=== PATIENT | female | born 1990 | race African-American/Black ===

== ENCOUNTER 2017-06-16 07:09 | Emergency (ER) | payer MEDICAID ==
--- NOTE | 2017-06-16 08:39 | RADIOLOGY REPORT (SQ) ---
EXAM DESCRIPTION: KNEE LEFT 4 VIEW COMPLETED DATE/TIME: 06/16/2017 8:10 am REASON FOR STUDY: hurt knee COMPARISON: None. NUMBER OF VIEWS: Four views left knee. LIMITATIONS: None. FINDINGS: Normal bone density. Small effusion suspected. No fracture or bone lesion. Maintained j oint spaces. Fairly extensive dystrophic calcification regionally throughout the soft tissues. Potentially relate d to previous trauma. OTHER: No other significant finding. IMPRESSION: Suspect small joint effusion. No fracture or bone lesion, however. TECHNICAL DOCUMENTATION: JOB ID: [id number]
[2017-06-16] MEDS ORDERED: ACETAMINOPHEN 325 MG TABLET PO ONE (08:40)
--- NOTE | 2017-06-16 08:43 | ER Document Report ---
HPI - HPI Patient complains to provider of: left knee pain Onset: Other - sunday Onset/Duration: Persistent Quality of pain: Achy Pain Level: 5 Context: Patient presents emergency department with complaints of left knee pain since last Sunday. Patient reports she was come down a step on the left steps she twisted her knee. Reports that her knee was feeling better but this morning she woke up and it was very painful. Reports no pain at rest, pain with ambulating/movement. Denies past medical history of injury to the knee. Patient is visiting from [place]. Associated Symptoms: None Exacerbated by: Movement, Walking Relieved by: Denies Similar symptoms previously: No Recently seen / treated by doctor: No - DERM Skin Color: Normal Past Medical History - General Information source: Patient Last Menstrual Period: irregular - Social History Smoking Status: Never Smoker Chew tobacco use (# tins/day): No Frequency of alcohol use: None Drug Abuse: None Occupation: not employed Lives with: Family Family History: Reviewed & Not Pertinent Patient has suicidal ideation: No Patient has homicidal ideation: No - Past Medical History Cardiac Medical History: Reports: Hx Hypertension Renal/ Medical History: Denies: Hx Peritoneal Dialysis Surgical Hx: Negative - Immunizations Hx Diphtheria, Pertussis, Tetanus Vaccination: Yes Vertical Provider Document - CONSTITUTIONAL Agree With Documented VS: Yes Exam Limitations: No Limitations General Appearance: WD/WN, Mild Distress - wince when walking - INFECTION CONTROL TRAVEL OUTSIDE OF THE [place] IN LAST 30 DAYS: No - HEENT HEENT: Atraumatic, Normocephalic - NECK Neck: Supple - RESPIRATORY Respiratory: No Respiratory Distress O2 Sat by Pulse Oximetry: 98 - CARDIOVASCULAR Cardiovascular: Regular Rate - MUSCULOSKELETAL/EXTREMETIES Musculoskeletal/Extremeties: MAEW, FROM, Tender - left knee ttp, no swelling , no obvious deformity - NEURO Level of Consciousness: Awake, Alert, Appropriate Motor/Sensory: No Motor Deficit - DERM Integumentary: Warm, Dry Adult Front & Back Diagram: 1 - tender with movement, ambulating Course - Re-evaluation Re-evalutation: 06/16/17 pt offered toradol, declines, instructed on effusion, possible tear, importance of fu when she returns to [place]. declines knee immobilizer, accepted kashmir wrap and crutches. - Vital Signs Vital signs: Temp Pulse Resp BP Pulse Ox 98.3 F 94 16 98 06/16/17 07:16 06/16/17 07:16 06/16/17 07:16 06/16/17 07:16 - Diagnostic Test Radiology reviewed: Image reviewed, Reports reviewed - EXAM DESCRIPTION: KNEE LEFT 4 VIEW COMPLETED DATE/TIME: 06/16/2017 8:10 am REASON FOR STUDY: hurt knee COMPARISON: None. NUMBER OF VIEWS: Four views left knee. LIMITATIONS : None. FINDINGS: Normal bone density. Small effusion suspected. No fracture or bone lesion. Maintained joint spaces. Fairly extensive dystrophic calcification regionally throughout the soft tissues. Potentially related to previous trauma. OTHER: No other significant finding. IMPRESSION: Suspect small joint effusion. No fracture or bone lesion, however Procedures - Immobilization Left Knee Immobilizer type: [place] wrap Performed by: PCT Post-Proc Neuro Vasc Exam: Unchanged from pre-exam Discharge - Discharge Clinical Impression: Knee effusion, left Left knee pain Qualifiers: Chronicity: acute Qualified Code(s): M25.562 - Pain in left knee Condition: Stable Disposition: HOME, SELF-CARE Instructions: Acetaminophen, [place] Wrap ([facility]), Use of Crutches ([facility]), Ice & Elevation ([facility]), Suspected Internal Knee Injury ([facility]), Knee Effusion ([facility]) Additional Instructions: *You have been evaluated for LEFT KNEE PAIN, EFFUSION *Maintain the kashmir wrap, use the crutches *Rest/Ice/Elevate *Follow up with orthopedics within 5 days for evaluation and possible MRI as indicated-call for an appointment *Take tylenol as indicated *Return to ED for worsening condition, changes, needs
[2017-06-16 09:14] VITALS: BP 142/80
== END 2017-06-16 09:00 | disposition home or self-care (01) ==
LOC: ER 07:09
DX: M25.562 Pain in left knee (principal); M25.462 Effusion, left knee; X50.0XXA Overexertion from strenuous movement or load, initial encounter; Y92.009 Unspecified place in unspecified non-institutional (private) residence as the place of occurrence of the external cause; I10 Essential (primary) hypertension
CPT/HCPCS: 99283

== ENCOUNTER 2017-09-10 15:04 | Inpatient (IN) | payer MEDICAID ==
[2017-09-10] MEDS ORDERED: LABETALOL HCL INJ 20 MG/4 ML DISP.SYRIN IV ONE ×3 (15:32→19:18)
--- NOTE | 2017-09-10 15:33 | ER Document Report ---
ED Medical Screen (RME) - General Chief Complaint: Chest Pressure Stated Complaint: DIZZINESS Time Seen by Provider: 09/10/17 15:32 Notes: Patient has right-sided chest pain. She has also had some cough and cold recently. No cardiac history. No history of DVTs. She does have a history of dermatomyositis. History of high blood pressure and takes labetalol. She has not been taking it last couple of days due to the way that it makes her feel. TRAVEL OUTSIDE OF THE [place] IN LAST 30 DAYS: No - Related Data Allergies/Adverse Reactions: No Known Allergies Allergy (Verified 09/10/17 15:05) Past Medical History - Social History Chew tobacco use (# tins/day): No Frequency of alcohol use: None Drug Abuse: None - Past Medical History Cardiac Medical History: Reports: Hx Hypertension Renal/ Medical History: Denies: Hx Peritoneal Dialysis - Immunizations Hx Diphtheria, Pertussis, Tetanus Vaccination: Yes Physical Exam - Vital signs Vitals: Temp Pulse Resp BP Pulse Ox 98.8 F 85 20 198/113 H 100 09/10/17 15:10 09/10/17 15:10 09/10/17 15:10 09/10/17 15:10 09/10/17 15:10 Course - Vital Signs Vital signs: Temp Pulse Resp BP Pulse Ox 98.8 F 85 20 198/113 H 100 09/10/17 15:10 09/10/17 15:10 09/10/17 15:10 09/10/17 15:10 09/10/17 15:10
[2017-09-10 16:04] LABS: ABSOLUTE EOSINOPHILS # (AUTO) 0.1 10^3/uL (0.0-0.6); ABSOLUTE LYMPHOCYTES (AUTO) 2.2 10^3/uL (0.5-4.7); ABSOLUTE MONOCYTES (AUTO) 0.3 10^3/uL (0.1-1.4); ABSOLUTE NEUT (AUTO) 2.3 10^3/uL (1.7-8.2); BASOPHILS % (AUTO) 0.8 % (0-2); EOSINOPHILS % (AUTO) 1.1 % (0-6); HEMATOCRIT 37.1 % (36.0-47.0); HEMOGLOBIN 13.4 g/dL (12.0-15.5); LYMPHOCYTES % (AUTO) 44.9 % (13-45); MEAN CORPUSCULAR HEMOGLOBIN 30.2 pg (27.0-33.4); MEAN CORPUSCULAR HGB CONC 36.3 g/dL (32.0-36.0); MEAN CORPUSCULAR VOLUME 83 fl (80-97); MONOCYTES % (AUTO) 6.1 % (3-13); PLATELET COUNT 328 10^3/uL (150-450); RED BLOOD COUNT 4.45 10^6/uL (3.72-5.28); RED CELL DISTRIBUTION WIDTH 14.1 % (11.5-14.0); SEGMENTED NEUTROPHILS % (AUTO) 47.1 % (42-78); TOTAL CELLS COUNTED % (AUTO) 100 %
--- NOTE | 2017-09-10 16:24 | RADIOLOGY REPORT (SQ) ---
EXAM DESCRIPTION: CHEST PA/LAT COMPLETED DATE/TIME: 09/10/2017 4:16 pm REASON FOR STUDY: right sided cp COMPARISON: None. EXAM PARAMETERS: NUMBER OF VIEWS: two views TECHNIQUE: Digital Frontal and Lateral radiographic views of the chest acquired. RADIATION DOSE: NA LIMITATIONS: none FINDINGS: LUNGS AND PLEURA: No opacities, masses or pneumothorax. No pleural effusion. MEDIASTINUM AND HILAR STRUCTURES: No masses or contour abnormalities. HEART AND VASCULAR STRUCTURES: Heart normal size. No evidence for failure. BONES: No acute findings. HARDWARE: None in the chest. OTHER: No other significant finding. IMPRESSION: NO SIGNIFICANT RADIOGRAPHIC FINDING IN THE CHEST. TECHNICAL DOCUMENTATION: JOB ID: [id number] [employer]- All Rights Reserved
[2017-09-10 16:26] LABS: ALANINE AMINOTRANSFERASE 48 U/L (9-52); ALBUMIN 5.2 g/dL (3.5-5.0); ALKALINE PHOSPHATASE 52 U/L (38-126); ANION GAP 14 (5-19); ASPARTATE AMINO TRANSFERASE 66 U/L (14-36); BILIRUBIN,DIRECT 0.2 mg/dL (0.0-0.4); BILIRUBIN,TOTAL 0.4 mg/dL (0.2-1.3); BLOOD UREA NITROGEN 6 mg/dL (7-20); CALCIUM 10.4 mg/dL (8.4-10.2); CARBON DIOXIDE 25 mmol/L (22-30); CHLORIDE 105 mmol/L (98-107); GLUCOSE 178 mg/dL (75-110); SODIUM 143.6 mmol/L (137-145); TOTAL PROTEIN 9.1 g/dL (6.3-8.2)
[2017-09-10 16:50] LABS: APPEARANCE,URINE CLEAR; BILIRUBIN,URINE NEGATIVE (NEGATIVE); COLOR,URINE STRAW; GLUCOSE, URINE 50 mg/dL (NEGATIVE); KETONES,URINE NEGATIVE (NEGATIVE); LEUKOCYTE ESTERASE,URINE NEGATIVE (NEGATIVE); NITRITE,URINE NEGATIVE (NEGATIVE); PROTEIN,URINE 30 mg/dL (NEGATIVE); URINE SPECIFIC GRAVITY 1.005; UROBILINOGEN,URINE NEGATIVE mg/dL (<2.0)
--- NOTE | 2017-09-10 19:10 | RADIOLOGY REPORT (SQ) ---
EXAM DESCRIPTION: CTA CHEST COMPLETED DATE/TIME: 09/10/2017 6:48 pm REASON FOR STUDY: CP/dermatomyositis/HTN/CP COMPARISON: None. TECHNIQUE: CT scan of the chest performed using helical scanning technique with dynamic intravenous contrast injection. Images reviewed with lung, soft tissue and bone windows. Reconstructed coronal and sagittal MPR images reviewed. Additional 3 dimensional post-processing performed to develop Maximal Intensity Projection images (MO P). All images stored on PACS. All CT scanners at this facility use dose modulation, iterative reconstruction, and/or weight based d osing when appropriate to reduce radiation dose to as low as reasonably achievable (ALARA). [facility]: Dose Right [facility]: CareDose [facility]: Dose Right [facility]: Teradose 4D [facility]: GLO Science CONTRAST TYPE AND DOSE: contrast/concentration: Isovue 370.00 mg/ml; Total Contrast Delivered: 65.0 ml; Total Saline Delivered: 64.0 ml Suboptimal bolus for aortic evaluation. RENAL FUNCTION: None required. The patient is less than 50 years old. RADIATION DOSE: CT Rad equipment meets quality standard of care and radiation dose reduction techniq ues were employed. CTDIvol: 3.3 - 14.3 mGy. DLP: 467 mGy-cm. . LIMITATIONS: None. FINDINGS: LUNGS AND PLEURA: No masses, infiltrates, pneumothorax. No pleural effusions, calcificati ons. AORTA AND GREAT VESSELS: Grossly normal. HEART: No pericardial effusion. No significant coronary artery calcifications. PULMONARY ARTERIES: No emboli visualized in the main pulmonary arteries or the segmental branches. HILAR AND MEDIASTINAL STRUCTURES: No identified masses or abnormal nodes. HARDWARE: None in the chest. UPPER ABDOMEN: No significant findings. Limited exam. THYROID AND OTHER SOFT TISSUES: No thyroid mass. BONES: No acute or significant finding. 3D MIPS: Confirm above findings. OTHER: No other significant finding. IMPRESSION: NORMAL CTA OF THE CHEST. NO PULMONARY EMBOLI. COMMENT: Quality ID # [id number]: Final reports with documentation of one or more dose reduction techniques (e.g., Automated exposure control, adjustment of the mA and/or kV according to patient size, use of iterative reconstruction technique) TECHNICAL DOCUMENTATION: JOB ID: [id number] [employer]- All Rights Reserved
[2017-09-10] MEDS ORDERED: PREDNISONE 20 MG TABLET PO ONE (19:17)
[2017-09-10] MEDS ORDERED: ONDANSETRON HCL INJ/PF 4 MG/2 ML SDV IV PRN (19:40)
[2017-09-10] MEDS ORDERED: MAG HYDROX/AL HYDROX/SIMETH SUSP 30 ML UDCUP PO PRN (19:40)
--- NOTE | 2017-09-10 19:59 | ER Document Report ---
ED General - General Chief Complaint: Chest Pressure Stated Complaint: DIZZINESS Time Seen by Provider: 09/10/17 15:32 Information source: Patient, Relative TRAVEL OUTSIDE OF THE [place] IN LAST 30 DAYS: No - HPI Patient complains to provider of: CP/HTN Onset: Yesterday Onset/Duration: Gradual Quality of pain: Pressure Severity: Moderate Pain Level: 2 Associated symptoms: Chest pain. denies: Fever, Headache, Leg swelling, Shortness of breath, Sore throat, Sweating Exacerbated by: Deep breathing Relieved by: Denies Similar symptoms previously: No Recently seen / treated by doctor: No Notes: Patient states she has right-sided pressure-like pain without radiation. She states that her blood pressure is also been elevated throughout the day. Patient has a history of dermatomyositis. Doctor in [place] and she is here on vacation - Related Data Allergies/Adverse Reactions: ibuprofen Adverse Reaction (Unknown, Verified 09/10/17 16:52) Unknown reaction Past Medical History - General Information source: Patient - Social History Smoking Status: Current Some Day Smoker Chew tobacco use (# tins/day): No Frequency of alcohol use: None Drug Abuse: None Lives with: Family Family History: Reviewed & Not Pertinent Patient has suicidal ideation: No Patient has homicidal ideation: No - Past Medical History Cardiac Medical History: Reports: Hx Hypertension Pulmonary Medical History: Reports: None EENT Medical History: Reports: None Neurological Medical History: Reports: None Endocrine Medical History: Reports: None Renal/ Medical History: Reports: None. Denies: Hx Peritoneal Dialysis Malignancy Medical History: Reports: None GI Medical History: Reports: None Musculoskeltal Medical History: Reports None Other: dermatomyositis Traumatic Medical History: Reports: None Past Surgical History: Reports: None - Immunizations Hx Diphtheria, Pertussis, Tetanus Vaccination: Yes History of Influenza Vaccine for 05/2017 - 10/2017 Season: No Review of Systems - Review of Systems Constitutional: No symptoms reported EENT: No symptoms reported Cardiovascular: See HPI Respiratory: See HPI Gastrointestinal: No symptoms reported Genitourinary: No symptoms reported Female Genitourinary: No symptoms reported Musculoskeletal: No symptoms reported Skin: Change in color, Dryness Neurological/Psychological: No symptoms reported Physical Exam - Vital signs Vitals: Temp Pulse Resp BP Pulse Ox 98.8 F 85 20 198/113 H 100 09/10/17 15:10 09/10/17 15:10 09/10/17 15:10 09/10/17 15:10 09/10/17 15:10 Course - Re-evaluation Re-evalutation: 09/11/17 00:04 Labs- All tests 24 hr 09/10/17 09/10/17 09/10/17 15:43 15:43 15:43 WBC 5.0 RBC 4.45 Hgb 13.4 Hct 37.1 MCV 83 MCH 30.2 MCHC 36.3 H RDW 14.1 H Plt Count 328 Seg Neutrophils % 47.1 Lymphocytes % 44.9 Monocytes % 6.1 Eosinophils % 1.1 Basophils % 0.8 Absolute Neutrophils 2.3 Absolute Lymphocytes 2.2 Absolute Monocytes 0.3 Absolute Eosinophils 0.1 Absolute Basophils 0.0 ESR Sodium 143.6 Potassium 4.0 Chloride 105 Carbon Dioxide 25 Anion Gap 14 BUN 6 L Creatinine 0.36 L Est GFR ( Amer) > 60 Est GFR (Non-Af Amer) > 60 Glucose 178 H Hemoglobin A1c % Calcium 10.4 H Total Bilirubin 0.4 Direct Bilirubin 0.2 Neonat Total Bilirubin Not Reportable Neonat Direct Bilirubin Not Reportable Neonat Indirect Bili Not Reportable AST 66 H ALT 48 Alkaline Phosphatase 52 Creatine Kinase CK-MB (CK-2) Troponin I < 0.012 C-Reactive Protein NT-Pro-B Natriuret Pep Total Protein 9.1 H Albumin 5.2 H TSH Urine Color Urine Appearance Urine pH Ur Specific Colon Urine Protein Urine Glucose (UA) Urine Ketones Urine Blood Urine Nitrite Urine Bilirubin Urine Urobilinogen Ur Leukocyte Esterase Urine WBC (Auto) Urine RBC (Auto) Urine Bacteria (Auto) Squamous Epi Cells Auto Urine Mucus (Auto) Urine Ascorbic Acid Urine HCG, Qual Urine Opiates Screen Urine Methadone Screen Ur Barbiturates Screen Ur Phencyclidine Scrn Ur Amphetamines Screen U Benzodiazepines Scrn Urine Cocaine Screen U Marijuana (THC) Screen 09/10/17 09/10/17 09/10/17 16:25 16:25 20:35 WBC RBC Hgb Hct MCV MCH MCHC RDW Plt Count Seg Neutrophils % Lymphocytes % Monocytes % Eosinophils % Basophils % Absolute Neutrophils Absolute Lymphocytes Absolute Monocytes Absolute Eosinophils Absolute Basophils ESR 32 H Sodium Potassium Chloride Carbon Dioxide Anion Gap BUN Creatinine Est GFR ( Amer) Est GFR (Non-Af Amer) Glucose Hemoglobin A1c % Calcium Total Bilirubin Direct Bilirubin Neonat Total Bilirubin Neonat Direct Bilirubin Neonat Indirect Bili AST ALT Alkaline Phosphatase Creatine Kinase CK-MB (CK-2) Troponin I C-Reactive Protein NT-Pro-B Natriuret Pep Total Protein Albumin TSH Urine Color STRAW Urine Appearance CLEAR Urine pH 8.0 Ur Specific Colon 1.005 Urine Protein 30 H Urine Glucose (UA) 50 H Urine Ketones NEGATIVE Urine Blood SMALL H Urine Nitrite NEGATIVE Urine Bilirubin NEGATIVE Urine Urobilinogen NEGATIVE Ur Leukocyte Esterase NEGATIVE Urine WBC (Auto) 1 Urine RBC (Auto) 0 Urine Bacteria (Auto) 1+ Squamous Epi Cells Auto 3 Urine Mucus (Auto) RARE Urine Ascorbic Acid NEGATIVE Urine HCG, Qual NEGATIVE Urine Opiates Screen NEGATIVE Urine Methadone Screen NEGATIVE Ur Barbiturates Screen NEGATIVE Ur Phencyclidine Scrn NEGATIVE Ur Amphetamines Screen NEGATIVE U Benzodiazepines Scrn NEGATIVE Urine Cocaine Screen NEGATIVE U Marijuana (THC) Screen NEGATIVE 09/10/17 09/10/17 09/10/17 20:35 20:35 20:35 WBC RBC Hgb Hct MCV MCH MCHC RDW Plt Count Seg Neutrophils % Lymphocytes % Monocytes % Eosinophils % Basophils % Absolute Neutrophils Absolute Lymphocytes Absolute Monocytes Absolute Eosinophils Absolute Basophils ESR Sodium Potassium Chloride Carbon Dioxide Anion Gap BUN Creatinine Est GFR ( Amer) Est GFR (Non-Af Amer) Glucose Hemoglobin A1c % 6.8 H Calcium Total Bilirubin Direct Bilirubin Neonat Total Bilirubin Neonat Direct Bilirubin Neonat Indirect Bili AST ALT Alkaline Phosphatase Creatine Kinase CK-MB (CK-2) Troponin I C-Reactive Protein < 5.0 NT-Pro-B Natriuret Pep Total Protein Albumin TSH 0.83 Urine Color Urine Appearance Urine pH Ur Specific Colon Urine Protein Urine Glucose (UA) Urine Ketones Urine Blood Urine Nitrite Urine Bilirubin Urine Urobilinogen Ur Leukocyte Esterase Urine WBC (Auto) Urine RBC (Auto) Urine Bacteria (Auto) Squamous Epi Cells Auto Urine Mucus (Auto) Urine Ascorbic Acid Urine HCG, Qual Urine Opiates Screen Urine Methadone Screen Ur Barbiturates Screen Ur Phencyclidine Scrn Ur Amphetamines Screen U Benzodiazepines Scrn Urine Cocaine Screen U Marijuana (THC) Screen 09/10/17 09/10/17 09/10/17 20:35 20:35 20:35 WBC RBC Hgb Hct MCV MCH MCHC RDW Plt Count Seg Neutrophils % Lymphocytes % Monocytes % Eosinophils % Basophils % Absolute Neutrophils Absolute Lymphocytes Absolute Monocytes Absolute Eosinophils Absolute Basophils ESR Sodium Potassium Chloride Carbon Dioxide Anion Gap BUN Creatinine Est GFR ( Amer) Est GFR (Non-Af Amer) Glucose Hemoglobin A1c % Calcium Total Bilirubin Direct Bilirubin Neonat Total Bilirubin Neonat Direct Bilirubin Neonat Indirect Bili AST ALT Alkaline Phosphatase Creatine Kinase 1239 H CK-MB (CK-2) 5.35 H Troponin I < 0.012 C-Reactive Protein NT-Pro-B Natriuret Pep 26 Total Protein Albumin TSH Urine Color Urine Appearance Urine pH Ur Specific Colon Urine Protein Urine Glucose (UA) Urine Ketones Urine Blood Urine Nitrite Urine Bilirubin Urine Urobilinogen Ur Leukocyte Esterase Urine WBC (Auto) Urine RBC (Auto) Urine Bacteria (Auto) Squamous Epi Cells Auto Urine Mucus (Auto) Urine Ascorbic Acid Urine HCG, Qual Urine Opiates Screen Urine Methadone Screen Ur Barbiturates Screen Ur Phencyclidine Scrn Ur Amphetamines Screen U Benzodiazepines Scrn Urine Cocaine Screen U Marijuana (THC) Screen Temp Pulse Resp BP Pulse Ox 98.2 F 88 16 177/114 H 100 09/10/17 21:54 09/10/17 21:54 09/10/17 21:54 09/10/17 21:54 09/10/17 21:54 Chest X-Ray 09/10/17 15:32 IMPRESSION: NO SIGNIFICANT RADIOGRAPHIC FINDING IN THE CHEST. Chest/Abdomen CTA 09/10/17 17:53 IMPRESSION: NORMAL CTA OF THE CHEST. NO PULMONARY EMBOLI. - Vital Signs Vital signs: Temp Pulse Resp BP Pulse Ox 98.2 F 88 16 177/114 H 100 09/10/17 21:54 09/10/17 21:54 09/10/17 21:54 09/10/17 21:54 09/10/17 21:54 - Laboratory Result Diagrams: 09/10/17 15:43 09/10/17 15:43 Laboratory results interpreted by me: 09/10/17 09/10/17 09/10/17 15:43 15:43 16:25 MCHC 36.3 H RDW 14.1 H BUN 6 L Creatinine 0.36 L Glucose 178 H Calcium 10.4 H AST 66 H Total Protein 9.1 H Albumin 5.2 H Urine Protein 30 H Urine Glucose (UA) 50 H Urine Blood SMALL H - EKG Interpretation by Vt EKG shows normal: Sinus rhythm - 97 beats per minute Rhythm: NSR Voltage: Consistant with LVH When compared to previous EKG there are: Previous EKG unavailable Critical Care Note - Critical Care Note Total time excluding time spent on procedures (mins): 30 Comments: 30 minutes of critical care time spent in direct contact evaluating and reevaluating the patient, treating symptoms with IV antihypertensives, reviewing labs and studies and speaking with family and consultants excluding any procedures Discharge - Discharge Clinical Impression: Hypertensive urgency Disposition: ADMITTED INPATIENT Admitting Provider: Hospitalist - Dr. Sullivan Unit Admitted: [facility]
[2017-09-10] MEDS ORDERED: ENALAPRILAT DIHYDRATE INJ/PF 1.25 MG/1 ML SDV IV ONE (20:30)
[2017-09-10 21:15] LABS: URINE AMPHETAMINES SCREEN NEGATIVE; URINE BARBITURATES SCREEN NEGATIVE; URINE BENZODIAZEPINES SCREEN NEGATIVE; URINE COCAINE SCREEN NEGATIVE; URINE MARIJUANA (THC) SCREEN NEGATIVE; URINE METHADONE SCREEN NEGATIVE; URINE PHENCYCLIDINE SCREEN NEGATIVE
[2017-09-10 21:48] LABS: CREATINE KINASE MB 5.35 ng/mL (<4.55)
[2017-09-10 21:57] LABS: TROPONIN I < 0.012 ng/mL
--- NOTE | 2017-09-10 22:33 | EKG REPORT ---
SEVERITY:- ABNORMAL ECG - SINUS RHYTHM CONSIDER LEFT VENTRICULAR HYPERTROPHY : Confirmed by: Camille Reno 10-Sep-2017 22:32:24
[2017-09-10] MEDS: HEPARIN SOD (PORCINE) 5,000 UNIT/ML 1 ML SYRINGE SUBCUT SCH (23:26)
[2017-09-10] MEDS ORDERED: LORAZEPAM INJ 2 MG/1 ML VIAL IV ONE (23:59)
[2017-09-11] MEDS: HYDRALAZINE HCL INJ/PF 20 MG/1 ML SDV IV PRN ×4 (01:54→21:57)
[2017-09-11 02:43] LABS: HEMATOCRIT 35.8 % (36.0-47.0); HEMOGLOBIN 12.7 g/dL (12.0-15.5); MEAN CORPUSCULAR HEMOGLOBIN 29.7 pg (27.0-33.4); MEAN CORPUSCULAR HGB CONC 35.5 g/dL (32.0-36.0); MEAN CORPUSCULAR VOLUME 84 fl (80-97); PLATELET COUNT 312 10^3/uL (150-450); RED BLOOD COUNT 4.28 10^6/uL (3.72-5.28); RED CELL DISTRIBUTION WIDTH 14.5 % (11.5-14.0); WHITE BLOOD COUNT 7.9 10^3/uL (4.0-10.5)
[2017-09-11 03:15] LABS: ANION GAP 13 (5-19); BLOOD UREA NITROGEN 6 mg/dL (7-20); CALCIUM 10.8 mg/dL (8.4-10.2); CARBON DIOXIDE 23 mmol/L (22-30); CHLORIDE 106 mmol/L (98-107); GLUCOSE 209 mg/dL (75-110); SODIUM 142.1 mmol/L (137-145)
[2017-09-11 03:20] LABS: POTASSIUM 4.2 mmol/L (3.6-5.0)
[2017-09-11 03:42] LABS: CREATINE KINASE MB 4.84 ng/mL (<4.55)
[2017-09-11 03:48] LABS: TROPONIN I < 0.012 ng/mL
--- NOTE | 2017-09-11 05:34 | PDOC H&P ---
History of Present Illness Admission Date/PCP: 09/10/17 20:02 Patient complains of: Chest pressure and uncontrolled hypertension History of Present Illness: PILAR CERNA is a 26 year old female visiting [place] from [facility] with a past medical history of dermatomyositis and hypertension. Patient presents with several hours of right-sided pressure-like pain without radiation, palpitations, shortness of breath or nausea vomiting. She monitors her blood pressure closely and has found it to be in the 200s systolic prompting her to seek evaluation emergency room where she is found to have uncontrolled hypertension of 190/115. She receives labetalol and referred to the hospitalist for admission. Patient denies recent change in medications, dietary indiscretion excessive caffeine or alcohol. Her initial workup is unremarkable. Past Medical History Cardiac Medical History: Reports: Hypertension Pulmonary Medical History: Reports: None EENT Medical History: Reports: None Neurological Medical History: Reports: None Endocrine Medical History: Reports: None Renal/ Medical History: Reports: None Malignancy Medical History: Reports: None GI Medical History: Reports: None Musculoskeltal Medical History: Reports: None Traumatic Medical History: Reports: None Past Surgical History Past Surgical History: Reports: None Social History Information Source: Patient Lives with: Family Smoking Status: Current Some Day Smoker Frequency of Alcohol Use: None Hx Recreational Drug Use: No Drugs: None Hx Prescription Drug Abuse: No - Advance Directive Resuscitation Status: Full Code Family History Family History: DM, Hypertension Parental Family History Reviewed: Yes Children Family History Reviewed: Yes Sibling(s) Family History Reviewed.: Yes Medication/Allergy Home Medications: Azathioprine [Imuran 50 mg Tablet] 100 mg PO DAILY 09/10/17 Ergocalciferol (Vitamin D2) [Drisdol 50,000 Unit (1.25MG) Capsule] 1 cap PO WE@ 1000 09/10/17 Fenofibrate Nanocrystallized [Triglide] 160 mg PO DAILY 09/10/17 Folic Acid [Folvite 1 mg Tablet] 1 mg PO DAILY 09/10/17 Labetalol HCl [Normodyne 200 mg Tablet] 200 mg PO Q12 09/10/17 Prednisone [Deltasone 20 mg Tablet] 20 mg PO DAILY 09/10/17 Allergies/Adverse Reactions: ibuprofen Adverse Reaction (Unknown, Verified 09/10/17 16:52) Unknown reaction Review of Systems Constitutional: ABSENT: chills, fever(s), headache(s), weight gain, weight loss Eyes: ABSENT: visual disturbances Ears: ABSENT: hearing changes Cardiovascular: ABSENT: chest pain, dyspnea on exertion, edema, orthropnea, palpitations Respiratory: ABSENT: cough, hemoptysis Gastrointestinal: ABSENT: abdominal pain, constipation, diarrhea, hematemesis, hematochezia, nausea, vomiting Genitourinary: ABSENT: dysuria, hematuria Musculoskeletal: ABSENT: joint swelling Integumentary: ABSENT: rash, wounds Neurological: ABSENT: abnormal gait, abnormal speech, confusion, dizziness, focal weakness, syncope Psychiatric: ABSENT: anxiety, depression, homidical ideation, suicidal ideation Endocrine: ABSENT: cold intolerance, heat intolerance, polydipsia, polyuria Hematologic/Lymphatic: ABSENT: easy bleeding, easy bruising Physical Exam Vital Signs: Temp Pulse Resp BP Pulse Ox 97.7 F 91 14 176/114 H 100 09/11/17 03:14 09/11/17 03:14 09/11/17 03:14 09/11/17 03:14 09/11/17 03:14 Intake & Output 09/09/17 09/10/17 09/11/17 11:59 11:59 11:59 Weight 62.3 kg General appearance: PRESENT: cooperative, mild distress, thin Head exam: PRESENT: atraumatic, normocephalic Eye exam: PRESENT: conjunctiva pink, EOMI, PERRLA. ABSENT: scleral icterus Ear exam: PRESENT: normal external ear exam Mouth exam: PRESENT: moist, tongue midline Neck exam: ABSENT: carotid bruit, JVD, lymphadenopathy, thyromegaly Respiratory exam: PRESENT: clear to auscultation monster. ABSENT: rales, rhonchi, wheezes Cardiovascular exam: PRESENT: gallop, systolic murmur Pulses: PRESENT: normal dorsalis pedis pul Vascular exam: PRESENT: normal capillary refill GI/Abdominal exam: PRESENT: normal bowel sounds, soft. ABSENT: distended, guarding, mass, organolmegaly, rebound, tenderness Rectal exam: PRESENT: deferred Extremities exam: PRESENT: full ROM. ABSENT: calf tenderness, clubbing, pedal edema Neurological exam: PRESENT: alert, awake, oriented to person, oriented to place , oriented to time, oriented to situation, CN II-XII grossly intact. ABSENT: motor sensory deficit Psychiatric exam: PRESENT: appropriate affect, normal mood. ABSENT: homicidal ideation, suicidal ideation Skin exam: PRESENT: dry, intact, warm. ABSENT: cyanosis, rash Results Laboratory Results: 09/11/17 02:30 09/11/17 02:30 09/10/17 09/10/17 09/11/17 20:35 20:35 02:30 WBC 7.9 RBC 4.28 Hgb 12.7 Hct 35.8 L MCV 84 MCH 29.7 MCHC 35.5 RDW 14.5 H Plt Count 312 Seg Neutrophils % Not Reportable Lymphocytes % Not Reportable Monocytes % Not Reportable Eosinophils % Not Reportable Basophils % Not Reportable Absolute Neutrophils Not Reportable Absolute Lymphocytes Not Reportable Absolute Monocytes Not Reportable Absolute Eosinophils Not Reportable Absolute Basophils Not Reportable Sodium Potassium Chloride Carbon Dioxide Anion Gap BUN Creatinine Est GFR ( Amer) Est GFR (Non-Af Amer) Glucose Calcium C-Reactive Protein < 5.0 TSH 0.83 09/11/17 02:30 WBC RBC Hgb Hct MCV MCH MCHC RDW Plt Count Seg Neutrophils % Lymphocytes % Monocytes % Eosinophils % Basophils % Absolute Neutrophils Absolute Lymphocytes Absolute Monocytes Absolute Eosinophils Absolute Basophils Sodium 142.1 Potassium 4.2 Chloride 106 Carbon Dioxide 23 Anion Gap 13 BUN 6 L Creatinine 0.33 L Est GFR ( Amer) > 60 Est GFR (Non-Af Amer) > 60 Glucose 209 H Calcium 10.8 H C-Reactive Protein TSH 09/10/17 09/10/17 09/10/17 20:35 20:35 20:35 Creatine Kinase 1239 H CK-MB (CK-2) 5.35 H Troponin I < 0.012 NT-Pro-B Natriuret Pep 26 09/11/17 09/11/17 02:30 02:30 Creatine Kinase 929 H CK-MB (CK-2) 4.84 H Troponin I < 0.012 NT-Pro-B Natriuret Pep Impressions: Chest X-Ray 09/10/17 15:32 IMPRESSION: NO SIGNIFICANT RADIOGRAPHIC FINDING IN THE CHEST. Chest/Abdomen CTA 09/10/17 17:53 IMPRESSION: NORMAL CTA OF THE CHEST. NO PULMONARY EMBOLI. Assessment & Plan - Diagnosis (1) Hypertensive urgency Is this a current diagnosis for this admission?: Yes Plan: Likely secondary to dermatomyositis flare, IV hydralazine, Vasotec and labetalol ordered. Follow-up TSH. (2) Abdominal pain Qualifiers: Abdominal location: left upper quadrant Qualified Code(s): R10.12 - Left upper quadrant pain Is this a current diagnosis for this admission?: Yes Plan: Unremarkable exam, supportive care, follow-up cardiac enzymes (3) Dermatomyositis Is this a current diagnosis for this admission?: Yes Plan: Likely with acute flare prednisone 60 mg received in the emergency room continue 20 twice daily. (4) Nausea Is this a current diagnosis for this admission?: Yes Plan: Symptomatic management. - Time Time Spent: 50 to 70 Minutes - Inpatient Certification Medical Necessity: Need Close Monitoring Due to Risk of Patient Decompensation
[2017-09-11] MEDS: HEPARIN SOD (PORCINE) 5,000 UNIT/ML 1 ML SYRINGE SUBCUT SCH ×3 (07:43→21:57)
[2017-09-11 09:42] LABS: CREATINE KINASE MB 3.81 ng/mL (<4.55)
[2017-09-11 09:43] LABS: TROPONIN I < 0.012 ng/mL
[2017-09-11] MEDS: ACETAMINOPHEN 325 MG TABLET PO PRN ×3 (13:35→22:48)
--- NOTE | 2017-09-11 13:49 | PDOC PROGRESS REPORT ---
Subjective Progress Note for:: 09/11/17 Subjective:: Patient was admitted with chest pressure and found to have poorly controlled hypertension. Her blood pressure is still poorly controlled with elevated latest being 180/110. On admission her blood pressure was 190/115. She has received both parenteral and oral antihypertensives but her blood pressures still pretty elevated Reason For Visit: HTN URGENCY, DERMATOMYOSITIS FLAIR Physical Exam Vital Signs: Temp Pulse Resp BP Pulse Ox 97.5 F 94 12 174/114 H 100 09/11/17 07:00 09/11/17 12:57 09/11/17 07:00 09/11/17 12:57 09/11/17 07:00 Intake & Output 09/10/17 09/11/17 09/12/17 06:59 06:59 06:59 Intake Total 422 Balance 422 Weight 62.3 kg General appearance: PRESENT: no acute distress, thin - Chronically ill looking, other - Heliotrope rash on face Head exam: PRESENT: atraumatic Eye exam: PRESENT: conjunctiva pink, EOMI, PERRLA. ABSENT: scleral icterus Ear exam: PRESENT: normal external ear exam Mouth exam: PRESENT: dry mucosa Neck exam: PRESENT: carotid bruit Respiratory exam: PRESENT: clear to auscultation monster. ABSENT: rales, rhonchi, wheezes Cardiovascular exam: PRESENT: RRR. ABSENT: diastolic murmur, rubs, systolic murmur Rectal exam: PRESENT: deferred Extremities exam: PRESENT: full ROM. ABSENT: calf tenderness, clubbing, pedal edema Musculoskeletal exam: PRESENT: ambulatory Neurological exam: PRESENT: alert, awake, oriented to person, oriented to place , oriented to time, oriented to situation Psychiatric exam: PRESENT: other - She appears to lack some insight Skin exam: PRESENT: rash, other - On abdominal wall extremities and face sparing the lower extremities Results Laboratory Results: 09/11/17 02:30 09/11/17 02:30 09/10/17 09/10/17 09/11/17 20:35 20:35 02:30 WBC 7.9 RBC 4.28 Hgb 12.7 Hct 35.8 L MCV 84 MCH 29.7 MCHC 35.5 RDW 14.5 H Plt Count 312 Seg Neutrophils % Not Reportable Lymphocytes % Not Reportable Monocytes % Not Reportable Eosinophils % Not Reportable Basophils % Not Reportable Absolute Neutrophils Not Reportable Absolute Lymphocytes Not Reportable Absolute Monocytes Not Reportable Absolute Eosinophils Not Reportable Absolute Basophils Not Reportable Sodium Potassium Chloride Carbon Dioxide Anion Gap BUN Creatinine Est GFR ( Amer) Est GFR (Non-Af Amer) Glucose Calcium C-Reactive Protein < 5.0 TSH 0.83 09/11/17 02:30 WBC RBC Hgb Hct MCV MCH MCHC RDW Plt Count Seg Neutrophils % Lymphocytes % Monocytes % Eosinophils % Basophils % Absolute Neutrophils Absolute Lymphocytes Absolute Monocytes Absolute Eosinophils Absolute Basophils Sodium 142.1 Potassium 4.2 Chloride 106 Carbon Dioxide 23 Anion Gap 13 BUN 6 L Creatinine 0.33 L Est GFR ( Amer) > 60 Est GFR (Non-Af Amer) > 60 Glucose 209 H Calcium 10.8 H C-Reactive Protein TSH 09/10/17 09/10/17 09/10/17 20:35 20:35 20:35 Creatine Kinase 1239 H CK-MB (CK-2) 5.35 H Troponin I < 0.012 NT-Pro-B Natriuret Pep 26 09/11/17 09/11/17 09/11/17 02:30 02:30 08:33 Creatine Kinase 929 H 890 H CK-MB (CK-2) 4.84 H Troponin I < 0.012 NT-Pro-B Natriuret Pep 09/11/17 08:33 Creatine Kinase CK-MB (CK-2) 3.81 Troponin I < 0.012 NT-Pro-B Natriuret Pep Impressions: Chest X-Ray 09/10/17 15:32 IMPRESSION: NO SIGNIFICANT RADIOGRAPHIC FINDING IN THE CHEST. Chest/Abdomen CTA 09/10/17 17:53 IMPRESSION: NORMAL CTA OF THE CHEST. NO PULMONARY EMBOLI. Assessment & Plan - Diagnosis (1) Hypertensive urgency Is this a current diagnosis for this admission?: Yes Plan: Blood pressure is still poorly controlled. I have restarted her home antihypertensive and added as needed parenteral drugs also (2) Abdominal pain Qualifiers: Abdominal location: left upper quadrant Qualified Code(s): R10.12 - Left upper quadrant pain Is this a current diagnosis for this admission?: Yes Plan: Resolving minimal complaints at this time (3) Dermatomyositis Is this a current diagnosis for this admission?: Yes Plan: Patient does have a typical rash of dermatomyositis and the CPK is elevated. I have restarted her home dose with a little booster at 30 mg daily of prednisone - Time Time Spent with patient: 15-24 minutes Anticipated discharge: Home Within: within 48 hours - Inpatient Certification Medical Necessity: Need Close Monitoring Due to Risk of Patient Decompensation, Risk of Complication if Not Cared For in Hospital, Other - Need for blood pressure control prior to discharge home
[2017-09-11] MEDS ORDERED: INSULIN REG, HUMAN 100 UNIT/ML 3 ML VIAL (PYX) SUBCUT PRN (13:50)
[2017-09-11] MEDS ORDERED: GLUCAGON,HUMAN RECOMB 1 MG INJ IM PRN (13:50)
[2017-09-11] MEDS ORDERED: DEXTROSE 40% GEL 15 GM TUBE PO PRN ×2 (13:50)
[2017-09-11] MEDS ORDERED: DEXTROSE 50%-WATER 25 GM/50 ML DISP.SYRIN IV PRN ×2 (13:50)
[2017-09-11] MEDS ORDERED: AZATHIOPRINE 50 MG TABLET PO ONE (15:00)
[2017-09-11] MEDS: LABETALOL HCL 200 MG TABLET PO SCH (18:28)
[2017-09-12] MEDS: ACETAMINOPHEN 325 MG TABLET PO PRN ×3 (05:55→21:35)
[2017-09-12] MEDS: HEPARIN SOD (PORCINE) 5,000 UNIT/ML 1 ML SYRINGE SUBCUT SCH ×3 (06:02→21:29)
[2017-09-12] MEDS ORDERED: (PENDING PHARMACY ID) (Fenofibrate Nanocrystallized [Triglide] 160 MG) PO SCH (10:00)
[2017-09-12] MEDS ORDERED: ERGOCALCIFEROL (VITAMIN D2) 50000 UNIT (1.25 MG) CAPSULE PO SCH (10:00)
[2017-09-12] MEDS: FOLIC ACID 1 MG TABLET PO SCH (10:44)
[2017-09-12] MEDS: LABETALOL HCL 200 MG TABLET PO SCH (10:44)
[2017-09-12] MEDS: PREDNISONE 20 MG TABLET PO SCH (10:44)
[2017-09-12] MEDS: FENOFIBRATE NANOCRYSTALLIZED 145 MG TABLET PO SCH (10:44)
[2017-09-12] MEDS: AZATHIOPRINE 50 MG TABLET PO SCH (10:45)
[2017-09-12] MEDS ORDERED: MAGNESIUM SULFATE/D5W 1 GM/100 ML RTUPB IV ONE (15:34)
--- NOTE | 2017-09-12 16:05 | PDOC PROGRESS REPORT ---
Subjective Progress Note for:: 09/12/17 Subjective:: This is a 26-year-old female visiting from [facility] with a past medical history of dermatomyositis and hypertension. Patient presents with several hours of right-sided pressure-like pain without radiation palpitations, shortness of breath or nausea vomiting. She monitors her blood pressure closely and has found it to be in the 200s systolic prompting her to seek evaluation in the emergency room where she was found to have uncontrolled hypertension of 190/115. Patient takes labetalol for her blood pressure but admits that she has not taken it for a few days prior to arrival to the ER. Patient seen during morning rounds. She was awake and walking around the room in good spirits. Patient denies any chest pain but does state that she feels dizzy. Patient states that this is a common occurence with her labetolol, which is why she doesn't like taking it. Subsequently, the patient also admitted to the RN that she intermittently takes her metformin because "it gives her diarrhea." Reason For Visit: HTN URGENCY, DERMATOMYOSITIS FLAIR Physical Exam Vital Signs: Temp Pulse Resp BP Pulse Ox 97.4 F 76 16 126/79 H 100 09/12/17 13:00 09/12/17 13:00 09/12/17 13:00 09/12/17 13:00 09/12/17 13:00 Intake & Output 09/11/17 09/12/17 09/13/17 06:59 06:59 06:59 Intake Total 422 2282 Balance 422 2282 Weight 62.3 kg 66.2 kg General appearance: PRESENT: no acute distress Head exam: PRESENT: normocephalic Eye exam: PRESENT: conjunctiva pink Ear exam: PRESENT: normal external ear exam Mouth exam: PRESENT: moist Respiratory exam: PRESENT: clear to auscultation monster Cardiovascular exam: PRESENT: +S1, +S2 Pulses: PRESENT: normal dorsalis pedis pul, +1 pedal pulses bilateral GI/Abdominal exam: PRESENT: soft Rectal exam: PRESENT: deferred Musculoskeletal exam: PRESENT: ambulatory Neurological exam: PRESENT: alert, awake Results Laboratory Results: 09/11/17 02:30 09/11/17 02:30 09/11/17 17:45 Magnesium 1.6 09/10/17 09/10/17 09/10/17 20:35 20:35 20:35 Creatine Kinase 1239 H CK-MB (CK-2) 5.35 H Troponin I < 0.012 NT-Pro-B Natriuret Pep 26 09/11/17 09/11/17 09/11/17 02:30 02:30 08:33 Creatine Kinase 929 H 890 H CK-MB (CK-2) 4.84 H Troponin I < 0.012 NT-Pro-B Natriuret Pep 09/11/17 08:33 Creatine Kinase CK-MB (CK-2) 3.81 Troponin I < 0.012 NT-Pro-B Natriuret Pep Impressions: Chest X-Ray 09/10/17 15:32 IMPRESSION: NO SIGNIFICANT RADIOGRAPHIC FINDING IN THE CHEST. Chest/Abdomen CTA 09/10/17 17:53 IMPRESSION: NORMAL CTA OF THE CHEST. NO PULMONARY EMBOLI. Status: Imported from PACS Assessment & Plan - Diagnosis (1) Hypertensive urgency Is this a current diagnosis for this admission?: Yes Plan: Home antihypertensives were added yesterday. Blood pressure moderately controlled. Patient states she is noncompliant with her labetalol because she does not like the way it makes her feel. Will attempt to transition to PO Norvasc for blood pressure control and in hopes of improving compliance. As long as patient's blood pressure remains within normal limits for 24 hours or greater than will consider discharge. (2) Dermatomyositis Is this a current diagnosis for this admission?: Yes Plan: Patient does have a typical dermatomyositis rash. She was restarted on her home dose of Imuran. Patient reports she normally takes 20 mg of prednisone daily , she was started on 30 mg of prednisone yesterday for flare up. (3) Nausea Is this a current diagnosis for this admission?: Yes Plan: Denies nausea at this time. PRN zofran ordered - Time Time Spent with patient: 35 or more minutes Medications reviewed and adjusted accordingly: Yes Anticipated discharge: Home Within: within 24 hours Disposition: Ultimately the plan is to discharge the patient back to [place]. She will need a follow-up visit with her primary care provider to closely monitor her blood pressure medication
[2017-09-12] MEDS ORDERED: LABETALOL HCL 200 MG TABLET PO SCH (22:00)
[2017-09-12] MEDS ORDERED: AMLODIPINE BESYLATE 5 MG TABLET PO SCH (22:00)
[2017-09-13] MEDS: HEPARIN SOD (PORCINE) 5,000 UNIT/ML 1 ML SYRINGE SUBCUT SCH (06:06)
[2017-09-13] MEDS ORDERED: AMLODIPINE BESYLATE 5 MG TABLET PO ONE (09:00)
[2017-09-13] MEDS: FOLIC ACID 1 MG TABLET PO SCH (09:46)
[2017-09-13] MEDS: FENOFIBRATE NANOCRYSTALLIZED 145 MG TABLET PO SCH (09:46)
[2017-09-13] MEDS: PREDNISONE 20 MG TABLET PO SCH (09:47)
[2017-09-13] MEDS: AZATHIOPRINE 50 MG TABLET PO SCH (09:48)
[2017-09-13] MEDS: ACETAMINOPHEN 325 MG TABLET PO PRN (09:58)
[2017-09-13 11:55] VITALS: BP 162/100
--- NOTE | 2017-09-13 14:38 | PDOC DISCHARGE SUMMARY ---
<ALMITA HOOVER Warren - Last Filed: 09/13/17 14:20> General - Admit/Disc Date/PCP Admission Date/Primary Care Provider: 09/10/17 20:02 Hypertensive urgency Discharge Date: 09/13/17 - Discharge Diagnosis (1) Hypertensive urgency Is this a current diagnosis for this admission?: Yes Summary: Patient presented to the emergency department with several hours of right-sided pressure-like pain without radiation, palpitations, shortness of breath, or nausea, vomiting. Patient was monitoring her blood pressure at home and found it to be in the 200s systolic prompting her to seek evaluation in the emergency department. Patient takes labetalol for her blood pressure but admits that she has not taken it for a few days prior to arrival because she does not like the side effects. Blood pressure control achieved with PO labetalol and later switched to Norvasc at the patient's request. BP control was achieved for greater than 24 hours. Patient was instructed to follow-up with her primary care doctor within 1 week of discharge. (2) Dermatomyositis Is this a current diagnosis for this admission?: Yes Summary: Patient does have a typical dermatomyositis rash. She was restarted on her home dose of Imuran. Patient reports she normally takes 20mg of prednisone daily. She was given 30mg Prednisone while inpatient for a flare up, she was instructed to continue taking her 20mg Prednisone once discharged (3) Nausea Is this a current diagnosis for this admission?: Yes Summary: Nausea was present at the time the patient was admitted to the emergency department. But was resolved once her blood pressure was controlled. Patient did not require antiemetics - Additional Information Resuscitation Status: Full Code Discharge Diet: As Tolerated, Cardiac Discharge Activity: Activity As Tolerated Prescriptions: Amlodipine Besylate [Norvasc 10 mg Tablet] 10 mg PO DAILY #30 tablet Home Medications: Azathioprine [Imuran 50 mg Tablet] 100 mg PO DAILY 09/10/17 Ergocalciferol (Vitamin D2) [Drisdol 50,000 Unit (1.25MG) Capsule] 1 cap PO WE@ 1000 09/10/17 Fenofibrate Nanocrystallized [Triglide] 160 mg PO DAILY 09/10/17 Folic Acid [Folvite 1 mg Tablet] 1 mg PO DAILY 09/10/17 Prednisone [Deltasone 20 mg Tablet] 20 mg PO DAILY 09/10/17 Metformin HCl 1,000 mg PO BID 09/11/17 Amlodipine Besylate [Norvasc 10 mg Tablet] 10 mg PO DAILY #30 tablet 09/13/17 History of Present Illness Patient complains of: high blood pressure History of Present Illness: PILAR CERNA is a 26 year old female visiting from [facility] with past medical history of dermatomyositis and hypertension. Patient presents with several hours of right-sided pressure like pain without radiation palpitations, shortness of breath or nausea, vomiting. She monitors her blood pressure closely and has found it to be in the 200s systolic prompting her to seek evaluation in the emergency room where she was found to have uncontrolled hypertension of 190/115. Patient takes labetalol for her blood pressure but admits she has not taken it for a few days prior to arrival to the ER. Patient states that the medication makes her feel dizzy. Hospital Course Hospital Course: patient was admitted to the IMCU with cardiac monitoring. She was briefly on an antihypertensive gtt in the ER, she was also given Vasotec and labetalol. Patient was not on the gtt for very long (less than 24 hours) and she was transitioned to her home dose of labetalol. Patient admitted to non-compliance with her BP medication because she did not "like how it made her feel." Patient was switched to Norvasc, blood pressure control was achieved for > 24hrs and she was discharged home. Physical Exam Vital Signs: Temp Pulse Resp BP Pulse Ox 97.8 F 92 20 147/98 H 100 09/13/17 11:48 09/13/17 11:48 09/13/17 11:48 09/13/17 11:48 09/13/17 11:48 Intake & Output 09/12/17 09/13/17 09/14/17 06:59 06:59 06:59 Intake Total 2282 2310 Balance 2282 2310 Weight 66.2 kg 64.6 kg General appearance: PRESENT: no acute distress Head exam: PRESENT: normocephalic Eye exam: PRESENT: conjunctiva pink Mouth exam: PRESENT: moist Neck exam: PRESENT: full ROM Respiratory exam: PRESENT: clear to auscultation monster Cardiovascular exam: PRESENT: +S1, +S2 Pulses: PRESENT: normal radial pulses Vascular exam: PRESENT: normal capillary refill GI/Abdominal exam: PRESENT: soft Rectal exam: PRESENT: deferred Neurological exam: PRESENT: alert, awake Psychiatric exam: PRESENT: appropriate affect Results Laboratory Results: 09/11/17 02:30 09/11/17 02:30 09/10/17 09/10/17 09/10/17 20:35 20:35 20:35 Creatine Kinase 1239 H CK-MB (CK-2) 5.35 H Troponin I < 0.012 NT-Pro-B Natriuret Pep 09/11/17 09/11/17 09/11/17 02:30 02:30 08:33 Creatine Kinase 929 H 890 H CK-MB (CK-2) 4.84 H Troponin I < 0.012 NT-Pro-B Natriuret Pep 09/11/17 08:33 Creatine Kinase CK-MB (CK-2) 3.81 Troponin I < 0.012 NT-Pro-B Natriuret Pep Impressions: Chest X-Ray 09/10/17 15:32 IMPRESSION: NO SIGNIFICANT RADIOGRAPHIC FINDING IN THE CHEST. Chest/Abdomen CTA 09/10/17 17:53 IMPRESSION: NORMAL CTA OF THE CHEST. NO PULMONARY EMBOLI. Status: Imported from PACS Qualifiers PATEINT BEING DISCHARGED WITH ANY OF THE FOLLOWING DIAGNOSIS?: No Plan Discharge Plan: discharge home. 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 Send home with rx for Norvasc <KENNEDI GARRIDO - Last Filed: 09/17/17 17:33> General - Admit/Disc Date/PCP Admission Date/Primary Care Provider: 09/10/17 20:02 History of Present Illness History of Present Illness: PILAR CERNA is a 26 year old female Physical Exam Vital Signs: Temp Pulse Resp BP Pulse Ox 97.8 F 92 20 147/98 H 100 09/13/17 11:48 09/13/17 11:48 09/13/17 11:48 09/13/17 11:48 09/13/17 11:48 Results Laboratory Results: 09/11/17 02:30 09/11/17 02:30 09/10/17 09/10/17 09/10/17 20:35 20:35 20:35 Creatine Kinase 1239 H CK-MB (CK-2) 5.35 H Troponin I < 0.012 NT-Pro-B Natriuret Pep 26 09/11/17 09/11/17 09/11/17 02:30 02:30 08:33 Creatine Kinase 929 H 890 H CK-MB (CK-2) 4.84 H Troponin I < 0.012 NT-Pro-B Natriuret Pep 09/11/17 08:33 Creatine Kinase CK-MB (CK-2) 3.81 Troponin I < 0.012 NT-Pro-B Natriuret Pep Impressions: Chest X-Ray 09/10/17 15:32 IMPRESSION: NO SIGNIFICANT RADIOGRAPHIC FINDING IN THE CHEST. Chest/Abdomen CTA 09/10/17 17:53
== END 2017-09-13 12:50 | disposition home or self-care (01) | DRG 305 ==
LOC: ER 15:04 → EH 20:02 → 5 21:53
PROVIDERS: ADMIT Internal Medicine; ATTEND Internal Medicine
DX: I16.0 Hypertensive urgency (principal); M33.90 Dermatopolymyositis, unspecified, organ involvement unspecified; I10 Essential (primary) hypertension; F17.210 Nicotine dependence, cigarettes, uncomplicated; Z88.6 Allergy status to analgesic agent; Z79.899 Other long term (current) drug therapy; Z83.3 Family history of diabetes mellitus; Z82.49 Family history of ischemic heart disease and other diseases of the circulatory system
CPT/HCPCS: 36415; 71046; 71275; 80048; 80053; 80307; 81001; 81025; 82550; 82553; 82962; 83036; 83735; 83880; 84443; 84484; 85025; 85652; 86140; 93005; 93010; 96374; 96376; 99291; J0360; J1644; J2060; J3475; J3490; J7500; J7512